=== PATIENT | male | born 2000 | race Caucasian/White ===

== ENCOUNTER 2018-10-03 12:39 | Emergency (ER) | payer MEDICAID ==
[~2018-10-03] VITALS: Ht 180.3 cm; Wt 73.0 kg
[2018-10-03 13:09] VITALS: BP 140/93
== END 2018-10-03 19:50 | disposition left against medical advice (07) ==
LOC: ER 13:01
DX: R07.89 Other chest pain (principal); Z53.21 Procedure and treatment not carried out due to patient leaving prior to being seen by health care provider
CPT/HCPCS: 93005